=== PATIENT | male | born 1960 | race Caucasian/White ===

== ENCOUNTER 2021-07-16 05:38 | Emergency (ER) | payer OTHER, SELFPAY ==
[2021-07-16 05:40] VITALS: BP 166/102; PULSE 95; RESP 20; TEMP 36.8; O2SAT 98; BMI 32.0
[2021-07-16 05:58] VITALS: BMI 32.0
[2021-07-16 06:00] VITALS: BP 186/109; PULSE 105; O2SAT 96
--- NOTE | 2021-07-16 06:01 | CT_ITS ---
PROCEDURE INFORMATION: Exam: CT Abdomen And Pelvis With Contrast Exam date and time: 07/16/2021 6:01 AM Age: 61 years old Clinical indication: Abdominal tenderness; Additional info: Llq abd pain, h/o diverticulitis TECHNIQUE: Imaging protocol: Computed tomography of the abdomen and pelvis with contrast. Radiation optimization: All CT scans at this facility use at least one of these dose optimization techniques: automated exposure control; mA and/or kV adjustment per patient size (includes targeted exams where dose is matched to clinical indication); or iterative reconstruction. Contrast material: ISOVUE; Contrast volume: 75 ml; Contrast route: IV; COMPARISON: No relevant prior studies available. FINDINGS: Lungs: Small cyst, lateral inferior left lobe. Mediastinal space: Tiny hiatal hernia. Liver: Fatty infiltration of the liver. Few calcified hepatic granulomas. Gallbladder and bile ducts: Prior cholecystectomy. Pancreas: Normal. No ductal dilation. Spleen: Normal. No splenomegaly. Adrenal glands: Normal. No mass. Kidneys and ureters: Few tiny renal cysts. Suspicion for tiny nonobstructing left renal calculus. Stomach and bowel: Scattered colonic diverticula with segmental area of wall thickening and pericolic induration at the junction of left and sigmoid colon. Appendix: No evidence of appendicitis. Intraperitoneal space: Unremarkable. No free air. No significant fluid collection. Vasculature: Few atheromatous vascular calcifications. Lymph nodes: Unremarkable. No enlarged lymph nodes. Urinary bladder: Unremarkable as visualized. Reproductive: Penile prosthesis. Bones/joints: Unremarkable. No acute fracture. Soft tissues: Unremarkable. IMPRESSION: 1. Scattered colonic diverticula with area of diverticulitis at the junction of left and sigmoid colon. No evidence of abscess or free perforation. 2. Fatty liver. 3. Suspicion for tiny nonobstructing left renal calculus. 4. Other nonacute findings above. COMMENTS: Consistent with the [employer]'s Incidental Findings Committee white paper (J Am Inge Radiol 2018): Any incidental renal lesion less than 1 cm or classified as too small to characterize, or any incidental cystic renal lesion characterized as simple-appearing, is likely benign. No follow-up imaging is recommended for these lesions per consensus recommendations based on imaging criteria.
--- NOTE | 2021-07-16 06:03 | PC.NURSE ---
Pt completed oral contrast
[2021-07-16 06:19] LABS: Microscopic, Urine URINE MICROSCOPIC (MICROSCOPIC)
[2021-07-16 06:20] LABS: Basophils # 0.1 K/mm3 (0-0.2); Basophils % 0.9 % (0.1-2.0); Eosinophils # 0.3 K/mm3 (0.0-0.4); Lymphocytes # 2.1 K/mm3 (0.7-4.5); Lymphocytes % 17.6 % (10-50); Mean Corpuscular HGB Conc 33.4 g/dL (31.8-35.4); Mean Corpuscular Hemoglobin 27.1 pg (27.0-31.2); Mean Corpuscular Volume 81.2 fl (80-94); Monocytes # 0.8 K/mm3 (0.1-1.0); Monocytes % 6.8 % (1.7-9.3); Neutrophils # 8.7 K/mm3 (1.8-7.8); Neutrophils % 72.6 % (37.0-80.0); Platelet Count 303 K/mm3 (142-424); Red Blood Count 5.91 M/mm3 (4.60-6.20); Red Cell Distribution Width 14.3 % (11.5-17.5)
[2021-07-16 06:21] LABS: Chloride 99 mmol/L (98-107); Potassium 4.3 mmoL/L (3.5-5.1); Sodium 137 mmol/L (136-145)
[2021-07-16 06:24] LABS: Alanine Aminotransferase 52 U/L (12-78); Albumin Level 4.7 g/dl (3.5-5.0); Albumin/Globulin Ratio 1.5 (1.1-1.8); Alkaline Phosphatase 89 U/L (38-126); Amylase 93 U/L (30-110); Anion Gap 14.3 mEq/L (5-15); Aspartate Amino Transferase 38 U/L (17-59); Bilirubin,Total 0.8 mg/dl (0.2-1.3); Blood Urea Nitrogen 11 mg/dl (9-20); Calcium 9.4 mg/dl (8.4-10.2); Carbon Dioxide 28 mmol/L (22.0-30.0); Creatinine Clearance Estimated 108 mL/min (50-200); Estimated Glomerular Filt Rate 86 ml/min (>60); GFR (African American) 104 ML/MIN (>60); Globulin 3.2 g/dL (1.3-3.2); Glucose 324 mg/dl (74-100); Lipase 199 U/L (23-300); Total Protein,Serum 7.9 g/dl (6.3-8.2)
[2021-07-16 06:29] LABS: Appearance,Urine CLEAR (Clear); Bilirubin,Urine Negative (Negative); Blood, Urine Negative (Negative); Color,Urine YELLOW (Yellow); Glucose,Urine (UA) 3+ (Negative); Ketones,Urine Negative (Negative); Leukocyte Esterase,Urine Negative (Negative); Nitrate,Urine Negative (Negative); Protein,Urine Negative (Negative); Urobilinogen,Urine 0.2 EU/dl (0.2)
[2021-07-16 06:30] LABS: C-Reactive Protein 5.1 mg/L (0-4)
[2021-07-16 06:31] VITALS: BP 183/102; PULSE 82; O2SAT 97
[2021-07-16 06:40] LABS: Amorphous Sediment,Urine Trace /lpf; RBC,Urine Occasional #/hpf (0-3); Squamous Epithelial Cell,Urine Occasional #/hpf (0-5)
[2021-07-16 06:41] LABS: Troponin I < 0.01 ng/ml (0.00-0.034)
[2021-07-16 06:49] LABS: Erythrocyte Sedimentation Rate 1 mm/hr (0-20)
[2021-07-16 07:00] VITALS: BP 161/92; PULSE 76; O2SAT 96
[2021-07-16 07:02] LABS: Acetone, Serum (Rapid) None Detected (None Detect)
[2021-07-16 07:03] LABS: Hemoglobin A1C 6.6 % (4.0-6.0)
--- NOTE | 2021-07-16 07:04 | HMH.EDNVD ---
ED Disposition Condition on Discharge: Good - Critical Care Critical Care Time: No <Med Parisi S - Last Filed: 07/16/21 07:54> <Steven Roth - Last Filed: 07/16/21 08:24> Clinical Impression: Diverticulitis Disposition: Still a Patient Instructions: DI for Diverticulitis Additional Instructions: fluids and use meds and see pcp for follow up Prescriptions: Ciprofloxacin HCl [Ciprofloxacin 250mg Tab] 500 mg PO BID 10 Days #20 tab Transmission Status: Pending to [facility] # metroNIDAZOLE [Flagyl 500mg Tablet] 500 mg PO Q8H 10 Days #30 tab Transmission Status: Pending to [facility] # Referrals: Juan Machado [Primary Care Provider] - Attestation: On 07/16/21, the high probability of a clinically significant, sudden or life threatening deterioration of the following system(s) required my full and direct attention, intervention and personal management. The time I documented below is in addition to time spent performing reported procedures but includes the following listed in this critical care notation. Medical Decision Making - Medical Records Medical records reviewed: Yes: I reviewed the patient's medical records. - Douglas Inquiry Pt receiving controlled substance: No - Lab Data Lab results reviewed: Yes: I reviewed the patient's lab results. Result diagrams: 07/16/21 06:00 07/16/21 06:00 <Med Parisi S - Last Filed: 07/16/21 07:54> - Lab Data Result diagrams: 07/16/21 06:00 07/16/21 06:00 <Steven Roth - Last Filed: 07/16/21 08:24> Vital Signs: 07/16/21 05:40 07/16/21 06:00 07/16/21 06:31 Temperature 98.2 F Temperature Source Oral Pulse Rate 105 H 82 Pulse Rate [Left] 95 H Respiratory Rate 20 Blood Pressure 186/109 H 183/102 H Blood Pressure [Left Arm] 166/102 H Blood Pressure Mean [Left Arm] 123 Blood Pressure Source [Left Arm] Manual Cuff/ Auscultation 02 Sat by Pulse Oximetry 98 96 97 Oxygen Delivery Method Room Air Room Air Room Air 07/16/21 07:00 Temperature Temperature Source Pulse Rate 76 Pulse Rate [Left] Respiratory Rate Blood Pressure 161/92 H Blood Pressure [Left Arm] Blood Pressure Mean [Left Arm] Blood Pressure Source [Left Arm] 02 Sat by Pulse Oximetry 96 Oxygen Delivery Method Room Air - Lab Data Lab Results 07/16/21 05:55: Urine Color Yellow, Urine Appearance Clear, Urine pH 6.0, Ur Specific Williams 1.020, Urine Protein Negative, Urine Glucose (UA) 3+, Urine Ketones Negative, Urine Blood Negative, Urine Nitrate Negative, Urine Bilirubin Negative, Urine Urobilinogen 0.2, Ur Leukocyte Esterase Negative, Urine RBC Occasional, Urine WBC None, Ur Squamous Epith Cells Occasional, Amorphous Sediment Trace, Urine Bacteria None 07/16/21 06:00: WBC 12.0 H, RBC 5.91, Hgb 16.0, Hct 48.0, MCV 81.2, MCH 27.1, MCHC 33.4, RDW 14.3, Plt Count 303, MPV 8.0, Neut % (Auto) 72.6, Lymph % (Auto) 17.6, [place] % (Auto) 6.8, Eos % (Auto) 2.0, Baso % (Auto) 0.9, Neut # (Auto) 8.7 H, Lymph # (Auto) 2.1, [place] # (Auto) 0.8, Eos # (Auto) 0.3, Baso # (Auto) 0.1, ESR 1 07/16/21 06:00: Sodium 137, Potassium 4.3, Chloride 99, Carbon Dioxide 28, Anion Gap 14.3, BUN 11, Creatinine 0.90, Estimated Creat Clear 108, Estimated GFR 86, Est GFR ( Amer) 104, Glucose 324 H, Calcium 9.4, Total Bilirubin 0.8, AST 38, ALT 52, Alkaline Phosphatase 89, Troponin I < 0.01, C-Reactive Protein 5.1 H, Total Protein 7.9, Albumin 4.7, Globulin 3.2, Albumin/Globulin Ratio 1.5, Amylase 93, Lipase 199, Procalcitonin 0.085 07/16/21 06:00: Hemoglobin A1c 6.6 H 07/16/21 06:00: Acetone Level None detected Orders (Tests/Meds): ED MEDICATIONS Discontinued Medications Generic Name Dose Route Start Last Admin Trade Name Freq PRN Reason Stop Dose Admin Diatrizoate Meglum/Diatrizoate Sod 30 ml 07/16/21 06:01 07/16/21 06:00 Diatrizoate Melanie 66% & Diatrizoate Na 10% 30ml Udc PO 07/16/21 06:02 30 ml ONCE ONE Administration So
--- NOTE | 2021-07-16 07:35 | PC.NURSE ---
Patient off the floor for CT at this time
[2021-07-16 08:12] LABS: Procalcitonin 0.085 ng/mL (0.0-2.0)
[2021-07-16 08:20] VITALS: BP 152/99; PULSE 79; RESP 18; TEMP 36.8; O2SAT 98
== END 2021-07-16 08:32 | disposition home or self-care (01) ==
PROVIDERS: Emergency Provider Emergency Medicine; PCP Family Medicine
DX: K57.52 Diverticulitis of both small and large intestine without perforation or abscess without bleeding (principal)
CPT/HCPCS: 74177; 80053; 81001; 82009; 82150; 83036; 83690; 84145; 84484; 85025; 85651; 86140; 96365; 99283; J2405; Q9967

== ENCOUNTER → 2022-03-07 20:25 | Outpatient (CLI) | payer BC, SELFPAY | PROVIDERS: PCP Family Medicine; Visit Provider Surgery | DX: Z01.812 Encounter for preprocedural laboratory examination (principal); Z11.52 Encounter for screening for COVID-19 | CPT/HCPCS: C9803; U0003; U0005 ==

== ENCOUNTER 2022-10-01 12:49 | Emergency (ER) | payer BC, SELFPAY ==
--- NOTE | 2022-10-01 14:00 | EXP.UTC ---
Discharge Plan Disposition Patient Disposition: Home, Self-Care Condition: Good Prescriptions Prescriptions: New benzonatate [benzonatate] 100 mg capsule 100 mg PO TIDP PRN (Reason: Cough) Qty: 30 0RF ondansetron 4 mg Tablet,Disintegrating 4 mg PO Q8H PRN (Reason: Nausea) Qty: 12 0RF No Action metoprolol succinate 25 MG tablet extended release 24 hr 25 mg PO DAILY venlafaxine 150 MG tablet extended release 24hr 150 mg PO DAILY ciprofloxacin HCl 250 MG tablet 500 mg PO BID 10 Days Qty: 20 0RF metronidazole 500 MG tablet 500 mg PO Q8H 10 Days Qty: 30 0RF Referrals Follow up/Referrals: Juan Machado [Primary Care Provider] - See instructions Activity Restrictions/Add. Instructions Additional Instructions/Restrictions: Drink plenty of fluids. Take tylenol or ibuprofen for pain or fever. Take the medications as directed. Follow up with your regular doctor. GO TO THE ER FOR ANY WORSENING SYMPTOMS Quarantine until you know the results of your covid-19 test. Notify your school or workplace of your results and follow their instructions regarding return to work/school. Clinical Impressions Clinical Impression: Viral syndrome, Exposure to 2019 novel coronavirus Instructions Patient Instructions: Coronavirus Disease 2019, Preventing the Spread of Coronavirus Discharge Instructions Discharge ED Provider: Marvin Mercedes [facility] [place] HPI General Stated complaint: Covid test Time Seen by Provider: 10/01/22 14:00 History of Present Illness Provider Complaint: He states that for the past 1 day he has had body aches, chills, and fever. He was exposed to covid-19 at his workplace several days ago. Related Data Home Medications Medication Instructions Recorded Confirmed metoprolol succinate 25 mg 25 mg PO DAILY rate 07/16/21 07/16/21 tablet,extended release 24 hr venlafaxine 150 mg tablet,extended 150 mg PO DAILY Depression 07/16/21 07/16/21 release 24 hr Previous Rx's Medication Instructions Recorded ciprofloxacin HCl 250 mg tablet 500 mg PO BID 10 days #20 tabs 07/16/21 metronidazole 500 mg tablet 500 mg PO Q8H 10 days #30 tabs 07/16/21 benzonatate 100 mg capsule 100 mg PO TIDP PRN Cough #30 caps 10/01/22 ondansetron 4 mg disintegrating 4 mg PO Q8H PRN Nausea #12 tabs 10/01/22 tablet Allergies Allergy/AdvReac Type Severity Reaction Status Date / Time Sulfa (Sulfonamide Allergy Unknown Verified 10/01/22 14:12 Antibiotics) [facility] Social History Smoking Status: Former smoker alcohol intake: never current occupational status: employed Travel in the last 8 weeks: None ROS Obtained: Yes All systems reviewed & no additional complaints except as documented Constitutional Constitutional: Reports chills and Reports fever(s) Eyes Eyes: Denies eye discharge ENT Ears, Nose, Mouth, and Throat: Reports as per HPI Cardiovascular Cardiovascular: Denies chest pain Respiratory Respiratory: Denies shortness of breath, Reports chest congestion, Reports cough, Denies stridor and Denies wheezing Gastrointestinal Gastrointestingal: Reports nausea; Denies abdominal pain, constipation, cramping, diarrhea or vomiting Musculoskeletal Musculoskeletal: Denies arthralgias Integumentary/Breasts Skin/Breast: Denies rash Neurologic Neurologic: Denies paresthesias Allergic/Immunologic Allergic/Immunologic: Denies wheezing Physical Exam General General appearance: alert and in no apparent distress Head Head exam: atraumatic, normocephalic and normal inspection Eye Eye exam: Present normal appearance, PERRL and EOMI ENT ENT exam: Present normal exam, normal oropharynx, mucous membranes moist, TM's normal bilaterally and normal external ear exam Neck Neck exam: Present normal inspection, full ROM and trachea midline; Absent meningismus or lymphadenopathy Chest Chest inspection: Present normal inspection and s
[2022-10-01 14:10] VITALS: BP 140/99; PULSE 104; RESP 17; TEMP 37.5; O2SAT 97; BMI 29.2
[2022-10-01 14:50] VITALS: BP 140/99; PULSE 104; RESP 17; TEMP 37.5
== END 2022-10-01 14:51 | disposition home or self-care (01) ==
PROVIDERS: Emergency Provider Nurse Practitioner Family; PCP Family Medicine
DX: U07.1 COVID-19 (principal)
CPT/HCPCS: 99212; C9803; G0463; U0003; U0005

== ENCOUNTER 2023-04-26 10:03 | Observation (INO) | payer BC, SELFPAY ==
[2023-04-26] VITALS (8 sets, daily range): BP systolic 108–150; BP diastolic 62–101; PULSE 64–96; RESP 18–20; TEMP 35.9–36.9; O2SAT 95–99; BMI 29.5; BMI 27.0
[2023-04-26 10:49] LABS: Chloride 95 mmol/L (98-107); Potassium 4.2 mmoL/L (3.5-5.1); Sodium 136 mmol/L (136-145)
[2023-04-26 10:51] LABS: Blood Urea Nitrogen 30 mg/dl (9-20); Creatinine Clearance Estimated 39 mL/min (50-200); Estimated Glomerular Filt Rate 26 ml/min (>60); GFR (African American) 32 ML/MIN (>60)
--- NOTE | 2023-04-26 10:51 | HMH.EDGENADL ---
Discharge Plan Disposition Patient Disposition: Admitted Prescriptions Prescriptions: No Action metoprolol succinate 25 MG tablet extended release 24 hr 25 mg PO DAILY venlafaxine 150 MG tablet extended release 24hr 150 mg PO DAILY ciprofloxacin HCl 250 MG tablet 500 mg PO BID 10 Days Qty: 20 0RF metronidazole 500 MG tablet 500 mg PO Q8H 10 Days Qty: 30 0RF benzonatate [benzonatate] 100 mg capsule 100 mg PO TIDP PRN (Reason: Cough) Qty: 30 0RF ondansetron 4 mg Tablet,Disintegrating 4 mg PO Q8H PRN (Reason: Nausea) Qty: 12 0RF Referrals Follow up/Referrals: Juan Machado [Primary Care Provider] - See instructions Clinical Impressions Clinical Impression: Nausea vomiting and diarrhea, KATIA (acute kidney injury) Instructions Patient Instructions: DI for Diarrhea and Traveler's Diarrhea -- Adult, DI for Diarrhea and Traveler's Diarrhea -- Child, DI for Nausea -- Adult, DI for Nausea -- Child Discharge ED Provider: Mendez Dhaliwal General Adult HPI General Chief complaint: Nausea/Vomiting/Diarrhea Stated complaint: Possible dehydration Time Seen by Provider: 04/26/23 10:51 History of Present Illness HPI narrative: Patient is a 62-year-old male presenting with 9 days of nausea vomiting diarrhea and abdominal pain. This began initially with nausea vomiting diarrhea and some nonspecific abdominal pain all of which were severe. He had 1 episode of possibly coffee-ground emesis but that had significantly improved. Diarrhea is also improved recently but he has persistent nausea vomiting and abdominal pain at this point. The pain is not localizable but diffuse. No blood in his stool that he is aware of however he is color blind and does not see the color where it well. No melena that he is aware of. He has a scheduled endoscopy with Dr. Lobo on May 16. Also went to his primary care doctor and told he probably had a Darlene-Coto tear. States that he does, felt lightheaded and seeing some spots today and felt that he was dehydrated and came to get evaluated. Related Data Home Medications Medication Instructions Recorded Confirmed metoprolol succinate 25 mg 25 mg PO DAILY rate 07/16/21 07/16/21 tablet,extended release 24 hr venlafaxine 150 mg tablet,extended 150 mg PO DAILY Depression 07/16/21 07/16/21 release 24 hr Previous Rx's Medication Instructions Recorded ciprofloxacin HCl 250 mg tablet 500 mg PO BID 10 days #20 tabs 07/16/21 metronidazole 500 mg tablet 500 mg PO Q8H 10 days #30 tabs 07/16/21 benzonatate 100 mg capsule 100 mg PO TIDP PRN Cough #30 caps 10/01/22 ondansetron 4 mg disintegrating 4 mg PO Q8H PRN Nausea #12 tabs 10/01/22 tablet Allergies Allergy/AdvReac Type Severity Reaction Status Date / Time Sulfa (Sulfonamide Allergy Unknown Verified 10/01/22 14:12 Antibiotics) [facility] Disclaimer: The information contained in this section may have been updated after the patient was seen, as this information can be updated by other users. Social History (Updated 10/02/22 @ 21:17 by Marvin Mercedes APRN) Smoking Status: Never smoker alcohol intake: never current occupational status: employed Travel in the last 8 weeks: None ROS Obtained: Yes All systems reviewed & no additional complaints except as documented Physical Exam General General appearance: alert Respiratory Respiratory exam: Present normal lung sounds bilaterally Cardiovascular Cardiovascular exam: Present regular rate; Absent tachycardia Abdominal Exam Abdominal exam: Present soft and tenderness (Deep tenderness to palpation throughout no rebound or guarding) Neurological Exam Neurological exam: Present alert and oriented X3 Medical Decision Making Douglas Inquiry Pt receiving controlled substance: No Vital Signs: 04/26/23 10:04 04/26/23 11:00 04/26/23 11:30 Temperature 98.0 F Temperature Source Oral Pulse Rate 78 74 Pulse Rate [Left Radial] 96 H Res
[2023-04-26 10:52] LABS: Alanine Aminotransferase 59 U/L (12-78); Albumin Level 4.8 g/dl (3.5-5.0); Albumin/Globulin Ratio 1.3 (1.1-1.8); Alkaline Phosphatase 59 U/L (38-126); Anion Gap 20.2 mEq/L (5-15); Aspartate Amino Transferase 58 U/L (17-59); Bilirubin,Total 1.1 mg/dl (0.2-1.3); Calcium 9.9 mg/dl (8.4-10.2); Carbon Dioxide 25 mmol/L (22.0-30.0); Globulin 3.6 g/dL (1.3-3.2); Glucose 150 mg/dl (74-100); Total Protein,Serum 8.4 g/dl (6.3-8.2)
[2023-04-26 10:54] LABS: Basophils # 0.1 K/mm3 (0-0.2); Basophils % 0.5 % (0.1-2.0); Eosinophils # 0.1 K/mm3 (0.0-0.4); Eosinophils % 0.7 % (0.1-12.0); Hematocrit 48.7 % (42.0-52.0); Hemoglobin 15.6 g/dL (14.1-18.0); Lymphocytes # 2.1 K/mm3 (0.7-4.5); Lymphocytes % 16.4 % (10-50); Mean Corpuscular Hemoglobin 26.2 pg (27.0-31.2); Mean Corpuscular Volume 81.9 fl (80-94); Mean Platelet Volume 8.6 fl (7.4-10.4); Monocytes # 1.1 K/mm3 (0.1-1.0); Monocytes % 8.8 % (1.7-9.3); Neutrophils # 9.3 K/mm3 (1.8-7.8); Neutrophils % 73.5 % (37.0-80.0); Platelet Count 396 K/mm3 (142-424); Red Blood Count 5.95 M/mm3 (4.60-6.20); Red Cell Distribution Width 15.4 % (11.5-17.5); White Blood Count 12.6 K/mm3 (4.8-10.8)
--- NOTE | 2023-04-26 10:56 | PC.NURSE ---
ER AT BEDSIDE
--- NOTE | 2023-04-26 10:58 | CT_ITS ---
FINAL REPORT TECHNIQUE: Axial images through the abdomen and pelvis were performed without contrast. This study was performed with techniques to keep radiation doses as low as reasonably achievable, (ALARA). Individualized dose reduction techniques using automated exposure control or adjustment of mA and/or kV according to the patient's size were employed. CLINICAL HISTORY: n/v/d KATIA, diffuse ttp descending colon removed , penial implant COMPARISON: 07/16/2021 FINDINGS: Abdomen: The lung bases are clear. There is moderate fatty infiltration of the liver. The gallbladder is absent. There is a low-attenuation area in the left lobe of liver which is stable, probably due to a complex cyst. The spleen, pancreas, adrenals are unremarkable. There are small nonobstructing stones in both renal collecting systems. Pelvis: The appendix measures up to 1 cm in diameter. No surrounding inflammation is identified. The tip appears somewhat volvulus. There are postoperative changes from prior sigmoid resection. Penile prosthesis reservoir is seen in the anterior pelvis. The urinary bladder is unremarkable. There is no pelvic mass or inflammation. IMPRESSION: Small nonobstructing stones in both renal collecting systems. Appendix measures up to 1 cm in diameter, slightly larger than previous but no surrounding inflammation identified. Please correlate with clinical features of appendicitis. Reviewed, Interpreted and Dictated by Feliciano Mock MD Transcribed by Yudi Lopez Authenticated and [facility]
[2023-04-26 11:10] LABS: Lipase 427 U/L (23-300)
--- NOTE | 2023-04-26 11:12 | PC.NURSE ---
PT returned from rad. Rounded on patient at this time, no needs. Pt being medicated per MAR
--- NOTE | 2023-04-26 12:00 | PC.NURSE ---
spoke with hospitalist for pt admission
--- NOTE | 2023-04-26 12:03 | PC.NURSE ---
called cared management for pt bed
--- NOTE | 2023-04-26 12:12 | PC.NURSE ---
spoke with lemuel martinez. who agreed the patient can go upstairs to the floor before their covid swab is resulted due to volume and pt acuity
[2023-04-26 12:13] LABS: Coronavirus 19, PCR Not Detected (NotDetected); Influenza A, PCR Not Detected (NotDetected); Influenza B, PCR Not Detected (NotDetected)
[2023-04-26 12:14] LABS: Creatine Kinase 396 U/L (55-170)
--- NOTE | 2023-04-26 12:26 | PC.NURSE ---
report called to SEBAS Ojeda
--- NOTE | 2023-04-26 12:36 | PC.NURSE ---
arrived by w/c from ED
--- NOTE | 2023-04-26 12:50 | HMH.PHAINT1 ---
Pharmacy Intervention Comments: home medication list verified using list from outpatient pharmacy
[2023-04-26 15:41] LABS: Microscopic, Urine URINE MICROSCOPIC (MICROSCOPIC)
--- NOTE | 2023-04-26 15:41 | EXP.HP ---
History of Present Illness *Admission Date: 04/26/23 *Reason for visit:: KATIA *History of present illness: 62 year old male presenting with 9 days of nausea vomiting diarrhea and abdominal pain.?PMHX of HTN, KATIA, and Diverticulitis. 9 days ago started with nausea vomiting diarrhea and upper abdominal pain all of which were severe.? He had 1 episode of possibly coffee-ground emesis but that had significantly improved.? Diarrhea is also improved recently but he has persistent nausea vomiting and abdominal pain at this point. The patient went to his PCP yesterday for same c/o. Pain is described as upper abdominal after attempting to eat and while vomiting. No blood in his stool that he is aware of however he is color blind and does not see the color where it well. He has a scheduled endoscopy with Dr. Lobo on May 16 set up by his PCP. The patient received 2 L of fluid in the ED and a noncontrast CT due to an increase creatinine from 0.9 to 2.5. He will be medically managed overnight. Goal is to advance diet as tolerated. He will be provided anti nausea medication as needed. Will recheck his BMP latter this evening. [facility] Disclaimer: The information contained in this section may have been updated after the patient was seen, as this information can be updated by other users. Medical History (Updated 04/26/23 @ 18:15 by Marvin Hutton MD) Hypertension Pre-diabetes Family History (Updated 04/26/23 @ 13:10 by Subha Mcgee RN) Colon cancer Prostate cancer Cancer Social History (Updated 04/26/23 @ 13:11 by Subha Mcgee RN) Smoking Status: Never smoker alcohol intake: never current occupational status: employed Travel in the last 8 weeks: None Review of Systems Review of Systems Review of systems:: unable to obtain Constitutional Constitutional: Reports system reviewed and no additional complaints, except as documented Eyes Eyes: Reports system reviewed and no additional complaints, except as documented ENT Ears, Nose, Mouth, and Throat: Reports system reviewed and no additional complaints, except as documented *Cardiovascular Cardiovascular: Reports system reviewed and no additional complaints, except as documented *Respiratory Respiratory: Reports system reviewed and no additional complaints, except as documented *Gastrointestinal Gastrointestinal: Reports as per HPI, Reports abdominal pain, Reports coffee ground emesis, Reports diarrhea and Reports vomiting *Genitourinary Genitourinary: Reports system reviewed and no additional complaints, except as documented *Musculoskeletal Musculoskeletal: Reports system reviewed and no additional complaints, except as documented *Neurologic Neurologic: Reports system reviewed and no additional complaints, except as documented Meds Home Medications and Allergies Home Medications Medication Instructions Recorded Confirmed Type venlafaxine 150 mg tablet,extended 150 mg PO DAILY Depression 07/16/21 04/26/23 History release 24 hr lisinopril 20 mg tablet 20 mg PO DAILY High blood pressure 04/26/23 04/26/23 History ondansetron 4 mg disintegrating 4 mg PO TIDP PRN Nausea 04/26/23 04/26/23 History tablet pioglitazone 15 mg-metformin 850 1 tab PO BIDWMEAL Diabetes 04/26/23 04/26/23 History mg tablet New Prescriptions to Start Prescriptions: Allergies Allergy/AdvReac Type Severity Reaction Status Date / Time Sulfa (Sulfonamide Allergy Unknown Verified 10/01/22 14:12 Antibiotics) Exam Data for Last 24 hours Vital signs and Labs for Last 24 Hours: Temp Pulse Resp BP Pulse Ox 98.0 F 65 18 143/74 H 99 04/26/23 15:27 04/26/23 15:27 04/26/23 15:27 04/26/23 15:27 04/26/23 15:27 Laboratory Results - last 24 hr 04/26/23 10:20: WBC 12.6 H, RBC 5.95, Hgb 15.6, Hct 48.7, MCV 81.9, MCH 26.2 L, MCHC 32.0, RDW 15.4, Plt Count 396, MPV 8.6, Neut % (Auto) 73.5, Lymph % (Auto) 16.4, [place] % (Auto) 8.8, Eos % (Auto) 0.7, Baso % (Auto) 0.5, Neut #
[2023-04-26 15:47] LABS: Appearance,Urine CLEAR (Clear); Blood, Urine TRACE-I (Negative); Color,Urine YELLOW (Yellow); Glucose,Urine (UA) Negative (Negative); Ketones,Urine Negative (Negative); Leukocyte Esterase,Urine Negative (Negative); Nitrate,Urine Negative (Negative); PH,Urine 5.5 (5.0-8.5); Protein,Urine 2+ (Negative); Specific Gravity, Urine >= 1.030 (1.005-1.030); Urobilinogen,Urine 0.2 EU/dl (0.2)
[2023-04-26 15:53] LABS: Bilirubin,Urine 1+ (Negative)
[2023-04-26 16:24] LABS: Amorphous Sediment,Urine 1+ /lpf; Bacteria,Urine 3+ /lpf; RBC,Urine Occasional #/hpf (0-3); Squamous Epithelial Cell,Urine Occasional #/hpf (0-5)
[2023-04-26 20:03] LABS: Hemoglobin A1C 5.6 % (4.0-6.0)
[2023-04-26 21:13] LABS: Anion Gap 15.2 mEq/L (5-15); Blood Urea Nitrogen 26 mg/dl (9-20); Calcium 8.7 mg/dl (8.4-10.2); Carbon Dioxide 28 mmol/L (22.0-30.0); Chloride 99 mmol/L (98-107); Creatinine Clearance Estimated 61 mL/min (50-200); Estimated Glomerular Filt Rate 44 ml/min (>60); GFR (African American) 53 ML/MIN (>60); Glucose 120 mg/dl (74-100); Potassium 4.2 mmoL/L (3.5-5.1); Sodium 138 mmol/L (136-145)
[2023-04-27 04:00] VITALS: BP 110/61; PULSE 78; RESP 20; TEMP 36.8; O2SAT 97; BMI 27.5
[2023-04-27 06:50] LABS: Eosinophils # 0.2 K/mm3 (0.0-0.4); Lymphocytes # 2.1 K/mm3 (0.7-4.5); Mean Platelet Volume 8.2 fl (7.4-10.4); Monocytes # 0.6 K/mm3 (0.1-1.0); White Blood Count 6.3 K/mm3 (4.8-10.8)
[2023-04-27 07:02] LABS: Chloride 101 mmol/L (98-107)
[2023-04-27 07:03] LABS: Potassium 4.8 mmoL/L (3.5-5.1); Sodium 139 mmol/L (136-145)
[2023-04-27 07:05] LABS: Alanine Aminotransferase 45 U/L (12-78); Aspartate Amino Transferase 49 U/L (17-59); Bilirubin,Total 1.1 mg/dl (0.2-1.3); Blood Urea Nitrogen 21 mg/dl (9-20); Creatinine Clearance Estimated 71 mL/min (50-200); Estimated Glomerular Filt Rate 51 ml/min (>60); GFR (African American) 62 ML/MIN (>60)
[2023-04-27 07:06] LABS: Albumin Level 3.9 g/dl (3.5-5.0); Albumin/Globulin Ratio 1.4 (1.1-1.8); Alkaline Phosphatase 50 U/L (38-126); Anion Gap 13.8 mEq/L (5-15); Calcium 9.1 mg/dl (8.4-10.2); Carbon Dioxide 29 mmol/L (22.0-30.0); Globulin 2.7 g/dL (1.3-3.2); Glucose 115 mg/dl (74-100); Total Protein,Serum 6.6 g/dl (6.3-8.2)
[2023-04-27 07:08] LABS: Lipase 204 U/L (23-300)
[2023-04-27 07:28] LABS: Basophils % 0.5 % (0.1-2.0); Eosinophils % 2.8 % (0.1-12.0); Hematocrit 41.8 % (42.0-52.0); Lymphocytes % 32.7 % (10-50); Mean Corpuscular HGB Conc 32.4 g/dL (31.8-35.4); Mean Corpuscular Volume 80.3 fl (80-94); Monocytes % 9.9 % (1.7-9.3); Neutrophils # 3.4 K/mm3 (1.8-7.8); Neutrophils % 54.1 % (37.0-80.0); Platelet Count 255 K/mm3 (142-424); Red Cell Distribution Width 15.4 % (11.5-17.5)
[2023-04-27 07:32] LABS: Hemoglobin 13.5 g/dL (14.1-18.0)
[2023-04-27 08:00] VITALS: BP 120/72; PULSE 60; RESP 16; TEMP 36.8; O2SAT 100
--- NOTE | 2023-04-27 10:40 | EXP.DC.SUM ---
General Admission date:: 04/26/23 Discharge date: 04/27/23 HPI HPI HPI: 62 year old male presenting with 9 days of nausea vomiting diarrhea and abdominal pain.?PMHX of HTN, KATIA, and Diverticulitis. 9 days ago started with nausea vomiting diarrhea and upper abdominal pain all of which were severe.? He had 1 episode of possibly coffee-ground emesis but that had significantly improved.? Diarrhea is also improved recently but he has persistent nausea vomiting and abdominal pain at this point. The patient went to his PCP yesterday for same c/o. Pain is described as upper abdominal after attempting to eat and while vomiting. No blood in his stool that he is aware of however he is color blind and does not see the color where it well. He has a scheduled endoscopy with Dr. Lobo on May 16 set up by his PCP. The patient received 2 L of fluid in the ED and a noncontrast CT due to an increase creatinine from 0.9 to 2.5. His repeat creatinine was 1.6 after fluids. Was bale to eat breakfast this A.M. Will be diuscharged home today. Encourged to continue to increase fluid intake and advaced diet as tolerated. Will see if his appointment with Dr. Lobo for endoscopy can be moved up. Patient will be discharged home with oral protonix 40 mg daily. The patient has a zofran prescription from PCP. Hospital Course Hospital Course Hospital Course: 62 year old male presenting with 9 days of nausea vomiting diarrhea and abdominal pain.?PMHX of HTN, KATIA, and Diverticulitis. 9 days ago started with nausea vomiting diarrhea and upper abdominal pain all of which were severe.? He had 1 episode of possibly coffee-ground emesis but that had significantly improved.? Diarrhea is also improved recently but he has persistent nausea vomiting and abdominal pain at this point. The patient went to his PCP yesterday for same c/o. Pain is described as upper abdominal after attempting to eat and while vomiting. No blood in his stool that he is aware of however he is color blind and does not see the color where it well. He has a scheduled endoscopy with Dr. Lobo on May 16 set up by his PCP. The patient received 2 L of fluid in the ED and a noncontrast CT due to an increase creatinine from 0.9 to 2.5. His creatinine decreased to 1.6 after fluid. He will be medically managed overnight. He was able to eat breakfast this a.m. He was started on protonix 49 mg daily. He will continue that dose after discharge. He already has anti nausea medication from PCP. He will follow up with his PCP for repeat kidney function check. EGD rescheduled for next week. He is encouraged to continue increasing his daily fluid intake and advance his diet as tolerated. He is discharged home in a stable condition. Will resume lisinopril 20 mg tomorrow. Please hold pioglitazone-metformin until follow up with PCP due to recent KATIA. Rounded on patient with nurse practitioner. Personally examined and interviewed patient. Agree with exam findings and care plan as documented. Patient stable for discharge home. Exam Data for Last 24 hours Vital signs and Labs for Last 24 Hours: Temp Pulse Resp BP Pulse Ox 98.3 F 60 16 120/72 100 04/27/23 08:00 04/27/23 08:00 04/27/23 08:00 04/27/23 08:00 04/27/23 08:00 Laboratory Results - last 24 hr 04/26/23 10:20: WBC 12.6 H, RBC 5.95, Hgb 15.6, Hct 48.7, MCV 81.9, MCH 26.2 L, MCHC 32.0, RDW 15.4, Plt Count 396, MPV 8.6, Neut % (Auto) 73.5, Lymph % (Auto) 16.4, [place] % (Auto) 8.8, Eos % (Auto) 0.7, Baso % (Auto) 0.5, Neut # (Auto) 9.3 H, Lymph # (Auto) 2.1, [place] # (Auto) 1.1 H, Eos # (Auto) 0.1, Baso # (Auto) 0.1 04/26/23 10:20: Sodium 136, Potassium 4.2, Chloride 95 L, Carbon Dioxide 25, Anion Gap 20.2 H, BUN 30 H, Creatinine 2.50 H, Estimated Creat Clear 39, Estimated GFR 26 L, Est GFR ( Amer) 32 L, Glucose 150 H, Calcium 9.9, Total Bilirubin 1.1, AST 58, ALT 59, Alkaline Phosphatase 59, Total Protein 8.4 H, Albumin 4.8, Globulin 3.6 H, Albumin/Globulin Ratio 1.3 03/29
[2023-04-28 11:22] LABS: HBsAg Screen Negative (Negative); HCV Ab Non Reactive (Non Reactive); Hep A Ab, IGM Negative (Negative); Hep B Core Ab, IgM Negative (Negative)
--- NOTE | 2023-04-28 12:51 | CARE MANAGER ---
Called and spoke with patient regarding recent discharge. Patient states that he is doing very well and had no complaints or concerns at time of call.
== END 2023-04-27 12:36 | disposition home or self-care (01) ==
LOC: ER 12:03 → 2ND 12:31
PROVIDERS: Nurse Practitioner Critical Care Medicine; Admitting Provider Internal Medicine Adolescent Medicine; Emergency Provider Student in an Organized Health Care Education/Training Program; PCP Family Medicine; Visit Provider Internal Medicine Adolescent Medicine
DX: N17.9 Acute kidney failure, unspecified (principal); I10 Essential (primary) hypertension; E11.9 Type 2 diabetes mellitus without complications; Z79.84 Long term (current) use of oral hypoglycemic drugs; Z79.899 Other long term (current) drug therapy; K57.93 Diverticulitis of intestine, part unspecified, without perforation or abscess with bleeding
CPT/HCPCS: 36415; 74176; 80048; 80053; 80074; 81001; 82550; 83036; 83690; 83735; 85025; 87086; 87636; 99285; C9803; G0378; J2405; U0003; U0005

== ENCOUNTER 2023-05-02 07:21 | Day surgery (SDC) | payer BC, SELFPAY ==
[2023-05-01 10:57] VITALS: BMI 29.3
[2023-05-02] VITALS (7 sets, daily range): BP systolic 71–122; BP diastolic 31–75; PULSE 68–79; RESP 14–18; TEMP 36.4–36.7; O2SAT 92–97
--- NOTE | 2023-05-02 07:51 | P.PN_ITS ---
[facility] Disclaimer: The information contained in this section may have been updated after the patient was seen, as this information can be updated by other users. Medical History Cholecystectomy planned Diabetes mellitus, type 2 Hypertension Pre-diabetes Skin cancer Sleep apnea Surgical History H/O shoulder surgery H/O vasectomy History of cholecystectomy History of colon resection History of penile implant History of transurethral resection of prostate Family History Other Cancer Colon cancer Prostate cancer Social History Smoking Status: Former smoker alcohol intake: never substance use type: denies use current occupational status: employed Travel in the last 8 weeks: None [facility] Anesthesia Checklist Patient Identification Patient Identification: Arm Band and Verbal (Name & ) Structural Data Admitted From: Home Planned Operative Procedure/s: EGD Consent for Planned Operative Procedure(s) Verified: Yes NPO Status Verified Time NPO: 00:00 Airway Assessment C-Spine Mobility Assessed: Yes TMJ Mobility Assessed: Yes Dentition: Good Dentition Neurological Assessment Level of Consciousness: Awake Hx Seizures: No Numbness or tingling in extremities: No Anesthesia Plan Anesthesia Risk discussed: Yes Anesthesia Plan: Verified ASA Class: II Anesthesia Type: MAC
[2023-05-02 08:04] LABS: POC Glucose,Bedside 110 (70-110)
--- NOTE | 2023-05-02 08:16 | HMH.SCOPE ---
Procedure: Date: 05/02/23 Patient Date of :: 1960 Procedure Performed:: Esophagogastroduodenoscopy with biopsy Indications:: Recent episode of hematemesis Recent nausea/vomiting/diarrhea (improved) Performing Provider:: Sarkis Gamez MD Referring Provider:: . Sedation:: Monitored anesthesia care Procedure:: After informed consent was obtained the patient was taken to the endoscopy suite. Sedation ensued after the patient was transferred to the left lateral decubitus position. Pulse, blood pressure, and oxygen saturation were monitored throughout the procedure. The endoscope was advanced beyond the duodenal bulb. Retroflexion within the gastric lumen was accomplished. The gastroscope was carefully removed and the patient was transferred to recovery in stable condition. Please see findings and specimens below for detail. Findings:: Gastroesophageal junction at 40 cm Patulous esophagus Small sliding hiatal hernia Gastroduodenitis Specimens:: Antral biopsy Polypoid inflammation of duodenum Recommendations:: Follow-up pathology Continue proton pump inhibition Complications:: No immediate Estimated blood obtained (mL): 1
--- NOTE | 2023-05-02 08:35 | SUR.PHASEII ---
Anesthesia aware of BP. No new orders.
== END 2023-05-02 09:38 | disposition home or self-care (01) ==
PROVIDERS: PCP Family Medicine; Visit Provider Surgery
PROC: 0DJ08ZZ Inspection of Upper Intestinal Tract, Via Natural or Artificial Opening Endoscopic (ICD-10-PCS; CPT 43235; principal; 2023-05-02 08:30)
DX: K92.0 Hematemesis (principal); K29.90 Gastroduodenitis, unspecified, without bleeding; K44.9 Diaphragmatic hernia without obstruction or gangrene; K29.70 Gastritis, unspecified, without bleeding; E11.9 Type 2 diabetes mellitus without complications
CPT/HCPCS: 43239; 82962; J2704

== ENCOUNTER 2023-05-20 20:11 | Emergency (ER) | payer BC, SELFPAY ==
[2023-05-20] VITALS (9 sets, daily range): BP systolic 110–153; BP diastolic 55–77; PULSE 72–103; RESP 19; TEMP 36.3; O2SAT 93–100; BMI 28.7
--- NOTE | 2023-05-20 20:39 | HMH.EDNVD ---
Discharge Plan Disposition Patient Disposition: Home, Self-Care Prescriptions Prescriptions: New ondansetron HCl 4 mg Tablet 4 mg PO Q8H PRN (Reason: Nausea) Qty: 20 0RF pantoprazole [Protonix] 40 mg tablet,delayed release (DR/EC) 40 mg PO DAILY 28 Days Qty: 28 0RF No Action venlafaxine 150 MG tablet extended release 24hr 150 mg PO DAILY lisinopril 20 mg tablet 20 mg PO DAILY ondansetron 4 mg tablet,disintegrating 4 mg PO TIDP PRN (Reason: Nausea) pioglitazone-metformin 15-850 mg tablet 1 tab PO BIDWMEAL Hold Instructions: until PCP follow up Label Comments: TAKE 1 TABLET BY MOUTH TWICE DAILY Referrals Follow up/Referrals: Juan Machado [Primary Care Provider] - See instructions Ernesto Costello MD [Staff Physician] - See instructions Sarkis Gamez MD [Staff Physician] - See instructions Clinical Impressions Clinical Impression: Diabetes, Gastritis, Elevated lactic acid level Instructions Patient Instructions: DI for Gastritis Discharge ED Provider: Isak (ED)Med Nausea/Vomiting/Diarrhea HPI General Chief complaint: Nausea/Vomiting/Diarrhea Stated complaint: vomiting, chills Time Seen by Provider: 05/20/23 20:30 Mode of Arrival: Family Vehicle Source of Information: Patient, Relative and Medical Record Limitations: No Limitations Description of Symptoms (Recalled from ER Triage Doc. by RN): Pt c/o vomiting and uncontrollable chills and shaking that began this evening. Denies cough, SOA, or chest pain. He denies any abd pain. He report he has been having issues with his stomach and vomiting frequently. Dr. Gamez did a EGD 2 wks ago and follows up next wk for results. Per Dr Gamez's report findings of Gastroduodenitis, they obtainined biopsies, and a small hiatal hernia. History of Present Illness HPI Narrative: pt with upper abd pain with vomiting and unable to keep fluids/food down - pt has hx of recent [facility] admit for same - pt with recent egd and had gastritis - not on protonix complaint: nausea, vomiting and abdominal pain Onset (ago): day(s) Associated Abdominal Pain: Yes Location of pain: epigastric Severity: moderate Associated symptoms: denies other symptoms Related Data Home Medications Medication Instructions Recorded Confirmed venlafaxine 150 mg tablet,extended 150 mg PO DAILY Depression 08/20/21 06/05/23 release 24 hr lisinopril 20 mg tablet 20 mg PO DAILY High blood pressure 04/26/23 05/01/23 ondansetron 4 mg disintegrating 4 mg PO TIDP PRN Nausea 04/26/23 05/01/23 tablet pioglitazone 15 mg-metformin 850 1 tab PO BIDWMEAL Diabetes 04/26/23 05/01/23 mg tablet Previous Rx's Medication Instructions Recorded ondansetron HCl 4 mg tablet 4 mg PO Q8H PRN Nausea #20 tabs 05/21/23 pantoprazole 40 mg tablet,delayed 40 mg PO DAILY 4 weeks #28 tabs 05/21/23 release (Protonix) Allergies Allergy/AdvReac Type Severity Reaction Status Date / Time Sulfa (Sulfonamide Allergy Unknown Verified 10/01/22 14:12 Antibiotics) [facility] Disclaimer: The information contained in this section may have been updated after the patient was seen, as this information can be updated by other users. Medical History Cholecystectomy planned Diabetes mellitus, type 2 Hypertension Pre-diabetes Skin cancer Sleep apnea Surgical History H/O shoulder surgery H/O vasectomy History of cholecystectomy History of colon resection History of penile implant History of transurethral resection of prostate Family History Other Cancer Colon cancer Prostate cancer Social History (Updated 05/02/23 @ 08:12 by Noreen Hernandez CRNA) Smoking Status: Current some day smoker alcohol intake: never substance use type: denies use current occupational status: employed Travel
[2023-05-20 20:45] LABS: Coronavirus 19, PCR Not Detected (NotDetected); Influenza A, PCR Not Detected (NotDetected); Influenza B, PCR Not Detected (NotDetected)
[2023-05-20 20:49] LABS: Basophils # 0.1 K/mm3 (0-0.2); Basophils % 0.5 % (0.1-2.0); Eosinophils # 0.1 K/mm3 (0.0-0.4); Eosinophils % 0.7 % (0.1-12.0); Hematocrit 39.2 % (42.0-52.0); Hemoglobin 12.6 g/dL (14.1-18.0); Lymphocytes # 1.9 K/mm3 (0.7-4.5); Mean Corpuscular Volume 81.4 fl (80-94); Mean Platelet Volume 8.5 fl (7.4-10.4); Monocytes # 0.8 K/mm3 (0.1-1.0); Monocytes % 6.1 % (1.7-9.3); Neutrophils # 10.7 K/mm3 (1.8-7.8); Neutrophils % 78.7 % (37.0-80.0); Platelet Count 450 K/mm3 (142-424); Red Blood Count 4.82 M/mm3 (4.60-6.20); Red Cell Distribution Width 16.6 % (11.5-17.5); White Blood Count 13.7 K/mm3 (4.8-10.8)
[2023-05-20 20:54] LABS: Alanine Aminotransferase 71 U/L (12-78); Albumin Level 5.1 g/dl (3.5-5.0); Albumin/Globulin Ratio 1.5 (1.1-1.8); Alkaline Phosphatase 71 U/L (38-126); Aspartate Amino Transferase 63 U/L (17-59); Bilirubin,Total 1.3 mg/dl (0.2-1.3); Blood Urea Nitrogen 13 mg/dl (9-20); Calcium 9.7 mg/dl (8.4-10.2); Carbon Dioxide 19 mmol/L (22.0-30.0); Chloride 102 mmol/L (98-107); Creatinine Clearance Estimated 76 mL/min (50-200); Estimated Glomerular Filt Rate 56 ml/min (>60); GFR (African American) 68 ML/MIN (>60); Globulin 3.5 g/dL (1.3-3.2); Glucose 194 mg/dl (74-100); Magnesium 1.9 mg/dl (1.6-2.3); Sodium 143 mmol/L (136-145); Total Protein,Serum 8.6 g/dl (6.3-8.2)
[2023-05-20 20:59] LABS: C-Reactive Protein 1.5 mg/L (0-4)
[2023-05-20 21:02] LABS: Lactic Acid 7.9 mmol/L (0.7-2.1)
--- NOTE | 2023-05-20 21:03 | PC.NURSE ---
Dr. Parisi notified of critical lactic.
[2023-05-20 21:09] LABS: Acetone, Serum (Rapid) None Detected (None Detect)
[2023-05-20 21:13] LABS: Procalcitonin 0.111 ng/mL (0.0-2.0)
--- NOTE | 2023-05-20 21:15 | CT_ITS ---
PROCEDURE INFORMATION: Exam: CT Abdomen And Pelvis With Contrast Exam date and time: 05/20/2023 10:18 PM Age: 62 years old Clinical indication: Abdominal pain; Additional info: N/v, chills, elevated lactic, upper abd pain TECHNIQUE: Imaging protocol: Computed tomography of the abdomen and pelvis with contrast. Total images: 326 Radiation optimization: All CT scans at this facility use at least one of these dose optimization techniques: automated exposure control; mA and/or kV adjustment per patient size (includes targeted exams where dose is matched to clinical indication); or iterative reconstruction. Contrast material: ISOVUE; Contrast volume: 75 ml; Contrast route: IV; REPORTING DATA: Count of CT and Cardiac NM exams in prior 12 months: This patient has received [address] and 0 known cardiac nuclear medicine studies in the 12 months prior to the current study. COMPARISON: CT ABDOMEN PELVIS WO CON 04/26/2023 11:06 AM FINDINGS: Tubes, catheters and devices: Status post penile prosthesis with reservoir in the left anterior pelvis. Lungs: Lung bases are clear. Heart: Normal heart size. Diaphragm: Small hiatal hernia. Liver: Decreased liver attenuation compatible with steatosis. Normal size and contour. Small left hepatic cyst. Calcified liver granuloma. Gallbladder and bile ducts: Status post cholecystectomy. No bile duct dilatation. Pancreas: Normal. No ductal dilation. Spleen: Nonenlarged spleen with adjacent splenule. Adrenal glands: Normal. No mass. Kidneys and ureters: Subcentimeter bilateral renal cortical hypodensities, too small to characterize but statistically cysts. 2 cm complex cystic lesion lower pole right kidney with internal septation and minor calcification, a Bosniak 2F lesion on this nondedicated exam. No hydronephrosis or nephrolithiasis. Stomach and bowel: Stomach is mostly collapsed. Unremarkable duodenum. No ileus or bowel obstruction. Small bowel is normal. Majority of the colon is collapsed. Mild colonic diverticulosis. Anastomosis of the sigmoid colon. Collapsed rectum. Appendix: Normal appendix. Intraperitoneal space: Unremarkable. No free air. No significant fluid collection. Vasculature: Abdominal aorta is normal in caliber. Lymph nodes: Unremarkable. No enlarged lymph nodes. Urinary bladder: Mild bladder wall thickening. Reproductive: Nonenlarged prostate. Bones/joints: No acute osseous abnormality. Mild degenerative changes thoracolumbar spine. Soft tissues: Postsurgical scarring midline abdominal wall. Small fat containing incisional hernias near the umbilicus. No bowel loop involvement. IMPRESSION: 1. No acute intra-abdominal or pelvic process. 2. 2 cm complex cystic lesion lower pole right kidney, Bosniak 2F lesion on this nondedicated exam. Relatively stable finding compared with July 16, 2021. 3. Mild colonic diverticulosis without diverticulitis. 4. Hepatic steatosis. 5. Small hiatal hernia. 6. Additional chronic and incidental findings. COMMENTS: Consistent with the [employer]'s Incidental Findings Committee white paper (J Am Inge Radiol 2018): Any incidental renal lesion less than 1 cm or classified as too small to characterize, or any incidental cystic renal lesion characterized as simple-appearing, is likely benign. No follow-up imaging is recommended for these lesions per consensus recommendations based on imaging criteria.
[2023-05-20 21:24] LABS: Erythrocyte Sedimentation Rate 11 mm/hr (0-20)
--- NOTE | 2023-05-20 21:39 | PC.NURSE ---
ROUNDED ON PT NOTHING NEEDED AT THIS TIME
--- NOTE | 2023-05-20 22:15 | PC.NURSE ---
PT gone to RAD via wheelchair
--- NOTE | 2023-05-20 22:21 | PC.NURSE ---
Pt returned from RAD
[2023-05-20 22:27] LABS: Microscopic, Urine URINE MICROSCOPIC (MICROSCOPIC)
[2023-05-20 22:31] LABS: Appearance,Urine CLEAR (Clear); Bilirubin,Urine Negative (Negative); Blood, Urine Negative (Negative); Color,Urine YELLOW (Yellow); Glucose,Urine (UA) Negative (Negative); Ketones,Urine Negative (Negative); Leukocyte Esterase,Urine Negative (Negative); Nitrate,Urine Negative (Negative); PH,Urine 5.5 (5.0-8.5); Protein,Urine 1+ (Negative); Specific Gravity, Urine >= 1.030 (1.005-1.030); Urobilinogen,Urine 0.2 EU/dl (0.2)
[2023-05-20 22:44] LABS: RBC,Urine Occasional #/hpf (0-3); Squamous Epithelial Cell,Urine Occasional #/hpf (0-5)
--- NOTE | 2023-05-20 22:48 | PC.NURSE ---
GAVE PT A WARM BLANKET NOTHING ELSE NEEDED AT THIS TIME, VISITOR AT BS
[2023-05-21] VITALS: BP 130/69; PULSE 79; O2SAT 98
[2023-05-21 00:16] LABS: Reflex Lactic Add Lactic Reflex
[2023-05-21 00:30] VITALS: BP 124/74; PULSE 79; O2SAT 98
[2023-05-21 00:30] LABS: Lactic Acid Follow Up (RFLX 1) 1.3 mmol/L (0.7-2.1)
--- NOTE | 2023-05-21 00:45 | PC.NURSE ---
Rounded on pt. Pt provided with drink. No other needs voiced.
[2023-05-21 01:21] VITALS: BP 120/73; PULSE 75; RESP 16; TEMP 36.3; O2SAT 97
== END 2023-05-21 01:23 | disposition home or self-care (01) ==
PROVIDERS: Emergency Provider Emergency Medicine; PCP Family Medicine
DX: K29.70 Gastritis, unspecified, without bleeding (principal); R11.2 Nausea with vomiting, unspecified; R68.83 Chills (without fever); R74.02 Elevation of levels of lactic acid dehydrogenase [LDH]; R79.89 Other specified abnormal findings of blood chemistry; E11.65 Type 2 diabetes mellitus with hyperglycemia; I10 Essential (primary) hypertension; F17.210 Nicotine dependence, cigarettes, uncomplicated; Z79.84 Long term (current) use of oral hypoglycemic drugs
CPT/HCPCS: 74177; 80053; 81001; 82009; 83605; 83735; 84145; 85025; 85651; 86140; 87040; 87636; 96361; 96374; 96375; 99285; C9803; J2405; Q9967; U0003; U0005

== ENCOUNTER → 2023-06-07 07:42 | Outpatient (CLI) | payer BC, SELFPAY ==
--- NOTE | 2023-06-07 07:43 | FL_ITS ---
FINAL REPORT CLINICAL HISTORY: .nausea FT 1:59 FINDINGS: UPPER GI WITH SBFT UPPER GI EXAM HISTORY: Abdominal pain, nausea, vomiting. PROCEDURE: The patient ingested barium. Effervescent crystals were also administered. Spot and overhead films were obtained. FINDINGS: Thereis a small posterior diverticulum in the cervical esophagus. The esophagus is otherwise normal. There is no hiatal hernia. There is no gastroesophageal reflux. Peristalsis is normal. The rugal fold pattern of the stomach is normal. The duodenal folds are mildly prominent consistent with mild duodenitis. FLUOROSCOPY TIME: 1.59 minutes IMPRESSION: 1. Small cervical esophageal diverticulum. 2. Mild duodenitis. SBFT: The rental clerk tool and equipment film is normal. There is no evidence of obstruction. The mucosal fold pattern is normal. The terminal ilium is normal. IMPRESSION: Normal SBFT. Films reviewed , interpreted and dictated by Dr. Montenegro Transcribed by Niall Grove PA-C. Reviewed, Interpreted and Dictated by Blaise Montenegro III, MD Transcribed by VENITA Brewster Authenticated and [facility]
== END ==
LOC: RAD 07:43
PROVIDERS: PCP Internal Medicine Adolescent Medicine; Visit Provider Surgery
DX: R11.0 Nausea (principal)
CPT/HCPCS: 74246; 74248

== ENCOUNTER → 2023-06-20 09:37 | Outpatient (CLI) | payer BC, SELFPAY ==
--- NOTE | 2023-06-20 09:37 | NM_ITS ---
FINAL REPORT TECHNIQUE: 0.537 millicuries of technetium 99m sulfur colloid was ingested with eggs, white toast with butter and 6 ounces of water. CLINICAL HISTORY: nausea 10:00 am .537 tc sulfur colloid injected into 2 whole eggs..white toast with butter and 6 oz of water FINDINGS: GASTRIC EMPTYING SCAN Static images show normal emptying of the stomach into the small bowel. Based on the time activity curve, the estimated half-emptying time is 73 minutes. IMPRESSION: Upper limits of normal gastric emptying time. Reviewed, Interpreted and Dictated by Cheyanne Small MD Transcribed by Lalit Desai Authenticated and [facility]
== END ==
PROVIDERS: PCP Internal Medicine Adolescent Medicine; Visit Provider Surgery
DX: R11.0 Nausea (principal)
CPT/HCPCS: 78264; A9541